=== PATIENT | female | born 1935 | race Caucasian/White ===

== ENCOUNTER 2018-07-02 20:45 | Inpatient (IN) | payer MEDICARE, OTHER ==
[~2018-07-02] VITALS: Ht 157.5 cm; Wt 61.7 kg
[2018-07-02] MEDS ORDERED: AMLO10 PO (20:58)
[2018-07-02 21:22] LABS: BASOPHILS ABSOLUTE AUTO 0.05 K/mm3 (0.00-0.23); BASOPHILS PERCENT AUTO 1 % (0-2); EOSINOPHILS ABSOLUTE AUTO 0.26 K/mm3 (0.00-0.68); EOSINOPHILS PERCENT AUTO 4 % (0-6); Hematocrit 46.5 % (33.0-51.0); Hemoglobin 14.9 g/dL (11.5-16.0); IMMATURE GRAN ABSOLUTE AUTO 0.01 K/mm3 (0.00-0.10); IMMATURE GRAN PERCENT AUTO 0 % (0-1); LYMPHOCYTES ABSOLUTE AUTO 1.29 K/mm3 (0.84-5.20); LYMPHOCYTES PERCENT AUTO 19 % (21-46); MONOCYTES ABSOLUTE AUTO 0.61 K/mm3 (0.16-1.47); MONOCYTES PERCENT AUTO 9 % (4-13); Mean Corpuscular Volume 91 fL (80-100); Mean Platelet Volume 10.1 fL (9.1-12.4); NEUTROPHILS ABSOLUTE AUTO 4.66 K/mm3 (1.96-9.15); NEUTROPHILS PERCENT AUTO 68 % (41-73); Platelet Count 267 K/mm3 (150-400); RDW Coefficient Variation 14.3 % (11.7-14.2); Red Blood Cell Count 5.13 M/mm3 (3.80-5.20); White Blood Cell Count 6.88 K/mm3 (4.00-11.30)
[2018-07-02 21:39] LABS: Alanine Aminotransfer (ALT/SGP 18 U/L (12-78); Albumin, Blood 3.8 g/dL (3.4-5.0); Albumin/Globulin Ratio 0.9 (0.8-1.8); Alk Phos 116 U/L (50-136); Anion Gap 11 mmol/L (6-16); Aspartate Aminotrans (AST/SGOT 21 U/L (12-37); Bilirubin, Total 0.4 mg/dL (0.1-1.0); Blood Urea Nitrogen 23 mg/dL (8-24); Bun/Creatinine Ratio 20.7 (12.0-20.0); CO2, Blood 25 mmol/L (21-32); Calcium, Blood 9.8 mg/dL (8.5-10.1); Chloride, Blood 108 mmol/L (98-108); Creatinine, Blood 1.11 mg/dL (0.40-1.00); Ethanol (Alcohol), Blood, Med <3 mg/dL; Globulin, Blood 4.3 g/dL (2.2-4.0); Glomerular Filtration Rate 50 (60-); Glucose, Blood 81 mg/dL (70-99); Magnesium, Blood 1.8 mg/dL (1.6-2.4); Potassium, Blood 3.8 mmol/L (3.5-5.5); Sodium, Blood 144 mmol/L (136-145); Total Protein, Blood 8.1 g/dL (6.4-8.2); Troponin I <0.015 ng/mL (0.000-0.040)
[2018-07-02 23:35] LABS: Source, Urine Voided
[2018-07-02 23:41] LABS: Bilirubin, Urine Neg (Neg); Blood, Urine Neg (Neg); Glucose Qualitative, Urine Neg (Neg); Ketones, Urine 1+ (Neg); Leukocyte Esterase, Urine Neg (Neg); Nitrite, Urine Neg (Neg); Protein, Urine 2+ (Neg); Specific Gravity, Urine 1.025 (1.003-1.022); Urobilinogen, Urine NORM (Normal)
[2018-07-02 23:42] LABS: Appearance, Urine Clear (Clear); Color, Urine Yellow (P-Yellow)
[2018-07-02 23:59] LABS: Amorphous Light (0-Heavy); Bacteria Few /hpf; Red Blood Cells, Urine Not Seen /hpf (0-2); Squamous Epithelial Cells Few /hpf (Few); White Blood Cells, Urine Not Seen /hpf (0-5)
--- NOTE | 2018-07-03 04:33 | NUR ---
07/03/18224 PT PULLED OUT IV AND ASKING FOR TISSUES. WHEN ASKED WHY SHE PULLED IT OUT SHE SAID,"I JUST DID IT." RN ATTEMPTING NEW IV SITE.
--- NOTE | 2018-07-03 07:30 | NUR ---
PT ARGUMENTATIVE. AMGRY, SWEARING, DEMANDS RESTRAINTS OFF. CONFUSED. DOES KNOW NAME. FAMILY. DISORIENTED. 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 H/R REG, STEVE. PER TELE: S STEVE AT 59. LUNGS CLEAR, RESP EASY, UNLABORED. ON R/A. BT X4 LAST BM UNKNOWN BY PT. VOIDS INCONT. PLACED IN ATTENDS AT THIS TIME. PT CONTINUES TO YELL AND IS NOT COOP. CONFUSED. BED IN LOW POSITION, CALL LITE IN REACH. BED ALARM ON FOR SAFETY. IS ALSO IN POSY VEST AND WRIST RESTRAINTS.
--- NOTE | 2018-07-03 07:45 | NUR ---
ATIVAN GIVEN FOR ANXIETY. PRIOR MRI. PT BEGINNING TO CALM DOWN. UNABLE TO WALK TO GET TO CART FOR MRI. WE USED SLIDER SHEET WITH SUCCESS.
--- NOTE | 2018-07-03 07:59 | NUR ---
07/03/18 0630 PT HAD PULLED OUT IV EARLIER AND TOOK 4 RN'S TO GET NEW SITE STARTED. PT BECAME MORE AGITATED THROUGHOUT SHIFT AND ASKING SAME QUESTIONS OVER AND OVER. RN REOIENTED HER TO SURROUNDINGS BUT WOULD FORGET WHERE SHE WAS AND WHY SHE IS HERE. REFUSED TO TURN AND DECLINED TO USE THE BEDPAN THIS SHIFT. RN PAGED HOSPITALIST TO INFORM OF NEED FOR RESTRAINTS SHE WAS TRYING TO GET OUT OF BED AND WAS REMOVING HEART MONITOR. INFORMED MD OF HIGH BLOOD PRESSURE AND HE STATED BP OKAY UNLESS GREATER THAN 220 SYSTOLIC. RN ATTEMPTED TO GET ANTI-ANXIETY MED BUT ONLY MRI ATIVAN ORDERED FOR NOW. SPOKE WITH SON,KING AND UPDATED HIM ON PT AND HER BEHAVIOR REQUIRING RESTRAINTS.
--- NOTE | 2018-07-03 11:00 | NUR ---
SON, KING COTTON. WILL COME TO SEE PT IN COUPLE HOUDRS. STATES HER COGNITION HAS BEEN FADING FOR AT LEAST A YEAR. WAS 1-2 ASST PLUS SHE USES FURNITURE TO MOTATE AROUMD ROOM.
--- NOTE | 2018-07-03 14:10 | NUR ---
SON IN ROOM. UPDATED ON SITUATION. VISITING WITH PT.
--- NOTE | 2018-07-03 14:45 | NUR ---
SON IN ROOM WITH HER S/O. ABLE TO STATES IS HER SON, NOT ABLE TO SAY NAME OR HIS B/DATE, ONLY IS 12 Y/O. COULD NOT GIVE ME S/O NAME. OR DATE. HAS REMAINED PLEASANT SLEEPY SINCE ATIVAN. DOES AWAKEN EASILY.
--- NOTE | 2018-07-03 17:00 | NUR ---
PT BECAME VERY ANGRY. DEMANDING TO LEAVE. TOLD HER NOT ABLE TO GO. PT HAD WORKED WITH HER EARLIER TODAY AND BARELY GOT TO STAND AND TAKE ONE STEP. SHE DETERMINED. SO I AGREED TO TAKE VIKRAM VEST RELEASE FROM CHAIR AND WALK WITH HER TO SEE. SHE TOOK ZYPREXA AND WE COMMENCED TO WALK TO DOOR. PT S/O AND SON WALKED WITH US. THEN DOWN MANNING CLEAR TO IRU MANNING. SINCE NO DR AT END OF MANNING. SHE RELUCTANTLY AGREED TO WALK TO HER ROOM AND WAIT. AIDE FOLLOWED FULL DISTANCE WITH WHEEL CHAIR. WALKED WITH FWW ALL WAY BACK TO ROOM. TOTAL WALK APPROX 500 FEET. WALK TOOK APPROX 1/[address] TO ADVISE. PT GOT BACK TO BED. TIRED. REBECCA PLACED AGAIN. NO WRIST RESTRAINTS. PT RELAXING, AWAKE. FAMILY AT BEDSIDE. ALL TALKING. CALMLY. 1729 FAMILY LEAVING. PT IN BED, POSY PLACED. BED ALARM ON FOR SAFETY. CALL LITE IN REACH
--- NOTE | 2018-07-03 18:02 | NUR ---
PT HAD ANGER THIS AM. MEDICATED WITH ATIVAN TO GET THROUGH MRI. DID CALM DOWN WELL. DID WELL WITH MRI. PENDING XRAY ON LEG AND HIP. PT RESTED MUCH OF AM THRU AFTERNOON. DID BECOME ANGRY DEMANDING TO GO HOME ABOUT 1700. AGREED TO TAKE ZYPREXA IF UNTIED FROM CHAIR. AGREED, AND SHE TOOK MED. SHE THEN DEMANDED TO GO HOME. SEE PRIOR NOTE. AFTER LONG WALK, DID GET BACK TO BED. EATING SITTING UP IN BED AT THIS TIME. POSY VEST APPLIED. BED IN LOW POSITION, CALL LITE IN REACH, BED ALARM ON FOR SAFETY.
--- NOTE | 2018-07-03 20:07 | NUR ---
PT TAKEN FOR XR OF L HIP/LEG. PT TO TRANSFER TO SCU ROOM 352 WHEN SHE COMES BACK UP FROM XR. REPORT GIVEN TO FRANSISCO HARRIS ASSUMING CARE.
--- NOTE | 2018-07-04 07:21 | NUR ---
calling out and fighting with restraints, iv infusing, room air, walking rounds completed with day shift, call light in reach
[2018-07-04 09:05] LABS: Anion Gap 8 mmol/L (6-16); Blood Urea Nitrogen 16 mg/dL (8-24); Bun/Creatinine Ratio 21.9 (12.0-20.0); CO2, Blood 24 mmol/L (21-32); Calcium, Blood 9.2 mg/dL (8.5-10.1); Chloride, Blood 109 mmol/L (98-108); Creatinine, Blood 0.73 mg/dL (0.40-1.00); Glomerular Filtration Rate >60 (60-); Glucose, Blood 80 mg/dL (70-99); Potassium, Blood 3.5 mmol/L (3.5-5.5); Sodium, Blood 141 mmol/L (136-145)
--- NOTE | 2018-07-04 16:09 | NUR ---
SUMMARY PT IS CONFUSED/DISORIENTED T/O DAY. SHE HAS BEEN IN REBECCA VEST RESTRAINT D/T HIGH FALL RISK, UNPREDICTABLE BEHAVIOR, NONREDIRECTABLE @ X'S. GAIT IS UNSTEADY, 1 ASSIST TO CHAIR TODAY, PARTICIPATED WITH PT/OT. SHE WAS GENERALLY CALM THIS AM & INTO THE AFTERNOON THEN BECAME INCREASINGLY AGITATED/ANXIOUS, CONFUSED, YELLING OUT, ATTEMPTING TO DISROBE. ATTEMPTS TO REORIENT/REASSURE UNSUCCESSFUL, TRIED HAVING HER TALK ON PHONE WITH HOWEVER UNSUCCESSFUL. GAVE ONE TIME ATIVAN 1MG FOR RELIEF, ASSISTED HER BACK TO BED SHE HAS BEEN RESTING/SLEEPING. BP HAS BEEN ELEVATED, LAST SBP 170'S, PARAMETERS CLARIFIED WITH DR WING, PRN HYDRALAZINE GIVEN. SOCSERV WORKING ON PLACEMENT.
--- NOTE | 2018-07-05 04:37 | NUR ---
SHIFT SUMMARY PT SLEEPY AT START OF SHIFT. WHEN PT WOKE SHE WAS VERY CONFUSED AND DID NOT UNDERSTAND WHY SHE WAS IN THE HOSPITAL AND WHY HER WAS NOT WITH HER. PT ATTEMPTING TO GET OOB W/O ASSISTANCE. REBECCA VEST REMAINS IN PLACE. PT REQUESTED TO GET UP TO GO TO THE RESTROOM. ATTEMPTED TO GET PT UP TO USE THE BSC. USING TWO PEOPLE AND A GAIT BELT WE WERE UNABLE TO GET PT UP. PT NOT BEARING ANY WEIGHT ON HER LEGS AND COMPLAINED OF PAIN IN L LEG. MEDICATED W/ TYLENOL AND ZYPREXA X 1. OTHERWISE NO ACUTE CHANGES. BLOOD PRESSURE ELEVATED AT START OF SHIFT, IMPROVING AFTER NEW DOSE OF LOSARTAN. WILL CONTINUE TO MONITOR AND REPORT TO DAY RN.
[2018-07-05 05:30] LABS: Anion Gap 8 mmol/L (6-16); Blood Urea Nitrogen 16 mg/dL (8-24); Bun/Creatinine Ratio 18.1 (12.0-20.0); CO2, Blood 27 mmol/L (21-32); Calcium, Blood 9.5 mg/dL (8.5-10.1); Chloride, Blood 109 mmol/L (98-108); Creatinine, Blood 0.89 mg/dL (0.40-1.00); Glomerular Filtration Rate >60 (60-); Glucose, Blood 95 mg/dL (70-99); Potassium, Blood 3.3 mmol/L (3.5-5.5); Sodium, Blood 144 mmol/L (136-145)
--- NOTE | 2018-07-05 08:00 | NUR ---
PTPLEASANTLY CONFUSED. SOME AGITATION AND REFUSAL TO ANSWER QUESTIONS. AT TIME. ABLE TO TELL SELF AND FAMILY. CALLS FOR CLARENCE AND KING. H/R REG, NO MURMER NOTED. NO TELE. LUNGS CLEAR, RESP EASY, UNLABORED. ON R.A. BT X4 LAST BM UNKNONWN TO PT. VOIDS ATTENDS AND 1 ASST WITH BSC. BED IN LOW POSITION, CALL LITE IN REACH, BED ALARM ON FOR SAFETY. POSY VEST ON FOR SAFETY. HIGH FALL RISK CANNOT FOLLOW DIRECTION, REFUSES TO FOLLOW INSTRUCTION WEAKNESS.
--- NOTE | 2018-07-05 16:46 | NUR ---
PT YELLING FOR VASQUEZ. HE NOT HERE. MOVED TO WINDOW TO LOOK OUT. NOT HELPING. OFFERED WATER. SIPPED. MEDICATED FOR ANXIETY.
--- NOTE | 2018-07-05 18:53 | NUR ---
PT CALMER SINCE IS BACK TO CHAIR TO EAT. ZYPREXA HAS HELPED. STILL CALLS OCCATIONALLY. IN LOUNGE CHAIR EATING AT PRESENT. VEST REMAINS IN PLACE. BED IN LOW POSITION, ACLL LITE IN REACH, CALLS APPROP
--- NOTE | 2018-07-05 21:28 | NUR ---
PATIENT ANGRY AND AGITATED AFTER BEING CALM WITH MEDICATION ADMINISTRATION. REBECCA VEST IN PLACE. WILL CONTINUE TO MONITOR.
--- NOTE | 2018-07-05 23:14 | NUR ---
HOPSITALIST DR VAUGHN RENEWED NON VIOLENT REBECCA VEST.
--- NOTE | 2018-07-06 04:23 | NUR ---
SHIFT SUMMARY PATIENT HAD NO ACUTE CHANGES OBSERVED DURING THE SHIFT. COOPERATIVE WITH MEDICATION ADMINISTRATION AND AGITATED WITH TRANSFER FROM CHAIR TO BED. REBECCA VEST ON AND RENEWED PER HOPSITALIST DR VAUGHN. AXOX 2. PIV REMAINS INTACT. DENIES PAIN, SOB, AND N/V. VSS/AFEBRILE. PATIENT ABLE TO SLEEP MOST OF THE SHIFT. CALLS OUT TO A CLARENCE AND ANOTHER WHEN AWAKE. CALL LIGHT IN REACH. BED IN LOWEST POSITION. WILL CONTINUE TO MONITOR UNTIL DAY SHIFT NURSE ASSUMES CARE.
--- NOTE | 2018-07-06 06:00 | NUR ---
BP 164/81; APRESOLINE 10 MG IV GIVEN PER EMAR. WILL REASSESS.
--- NOTE | 2018-07-06 06:26 | NUR ---
BP REASSESSED 143/83. CALL LIGHT IN REACH. WILL CONTINUE TO MONITOR
--- NOTE | 2018-07-06 17:05 | NUR ---
PATIENT HAD SON AT BEDSIDE THIS AFTERNOON. DISCUSSED OPTIONS FOR DISCHARGE WITH PATIENT'S SON. JOESPH FROM HOSPICE DISCUSSED OPTIONS WITH RN . JOESPH TOOK THE SON'S NUMBER AND IS PLANNING TO CALL HIM. JOESPH STATES HE WILL COME ASSESS PATIENT TOMORROW. PATIENT HESITANT TO TRANSFER OR AMBULATE AT THIS TIME. PATIENT UNABLE TO TELL RN WHERE SHE IS. TAB ALARM IN PLACE. WILL CONTINUE TO MONITOR
--- NOTE | 2018-07-06 21:00 | NUR ---
PATIENT TRANSFER CHAIR TO BED AND COOPERATIVE. CALM WITH MEDICATION ADMINISTRATION AND ASSESSMENT. REPORTS WANTS TO WATCH TV. REBECCA VEST ON. CALL LIGHT IN REACH. WILL CONTINUE TO MONITOR.
--- NOTE | 2018-07-07 05:05 | NUR ---
SHIFT SUMMARY PATIENT HAD NO ACUTE CHANGES. AXOX 3 W/CONFUSION. REBECCA VEST IN PLACE. HEAVY TWO PERSON TRANSFER FROM CHAIR TO BED. REPORTS WEAK LEGS. DENIES PAIN, SOB, AND N/V. NO AGITATION THIS SHIFT AND MINIMAL VERBAL CALLING OUT. VSS/AFEBRILE. CALL LIGHT IN REACH. BED IN LOWEST POSITION. WILL CONTINUE TO MONITOR UNITL DAY SHIFT NURSE [facility].
--- NOTE | 2018-07-07 06:38 | NUR ---
BP 166/93; IV APRESOLINE 10 MG GIVEN PER EMAR BP 122/59 AFTER REASSESSMENT. CALL LIGHT IN REACH. WILL CONTINUE TO MONITOR.
--- NOTE | 2018-07-07 15:04 | NUR ---
SPOKE WITH DAUGHTER OF PATIENT. SHE IS CONCERNED THAT THE PATIENT'S KNEE HAS NOT HAD AN MRI. XRAY SHOW NO ISSUE WITH BONE TISSUE BUT PATIENT COMPLAINS OF LEFT KNEE/HIP PAIN. ACCORDING TO THE PATIENT'S DAUGHTER THIS PAIN HAS BEEN CHRONIC FOR THE LAST 6 YEARS. FAMILY ALSO WISHES TO DISCUSS DISCHARGE PLANNING THE DAUGHTER STATES THAT SHE IS PREPARED TO HAVE 24 HOUR CAREGIVERS IN THE HOME IF THE PATIENT IS ABLE TO GO HOME. PATIENT WAS COOPERATIVE WITH PHYISCAL THERAPY AND COOPERATIVE THIS MORNING. THIS AFTERNOON SHE IS MORE AGITATED. SHE APPEARS TO TALK TO PEOPLE WHO ARE NOT IN HER ROOM. FREQUENTLY CALLS OUT FOR MARTÍN AND IS FORGETFUL THAT SHE IS IN THE HOSPITAL. SHE REQUIRES A 3 PERSON ASSIST FOR TOILETING WHEN SHE IS UNCOOPERATIVE. SHE WILL DROP HER WEIGHT AND REFUSE TO MOVE WHEN BANANA HANDLER OFFERS TO CLEAN HER UP. SHE STATES SHE WANTS TO GO HOME TONIGHT AND OFFERED STAFF 100 DOLLARS TO "GET HER OUT OF HERE". STAFF INFORMED PATIENT THEY ARE UNABLE TO ASSIST HER IN LEAVING UNTIL SHE HAS A DR DISCHARGE ORDER.
--- NOTE | 2018-07-07 17:10 | NUR ---
SPOKE WITH ABOUT PATIENT'S LEFT KNEE AND HIP PAIN. DR. WING STATES THE PATIENT HAS A LOT OF ARTHRITIS IN THESE AREAS THAT IS CAUSING HER PAIN. SHE DOES NOT THINK A FOLLOW UP MRI WOULD BE NECESSARY. SPOKE WITH FAMILY PRIOR TO DR. WING, THEIR CONCERNS CONTINUE TO BE DISCHARGE PLANNING AND THE LEG PAIN. PATIENT'S DAUGHTER STATES THAT THEY ARE "CONSIDERING" A TRACK MAINTAINER CAREGIVER FOR THE PATIENT. THEY CURRENTLY DO NOT HAVE ANY IN PLACE. PATIENT NOT COOPERATIVE WITH TOILETING THIS AFTERNOON. BEGGING STAFF TO LET HER GO HOME. CURRENTLY STILL IN [facility] FOR HER SAFETY.
--- NOTE | 2018-07-07 19:43 | NUR ---
PATIENT CALLING OUT FOR VASQUEZ. WILL INCREASE IN VOLUME YELLING. CALL LIGHT IN REACH. REBECCA VEST IN PLACE. WILL CONTINUE TO MONITOR.
--- NOTE | 2018-07-07 21:41 | NUR ---
HEAVY TWO PERSON STAND PIVOT FROM CHAIR TO BED. LET PATIENT REPORT WHEN SHE IS READY FIRST. REBECCA VEST IN PLACE. NOW WATCHING TV. CALL LIGHT IN REACH. WILL CONTINUE TO MONITOR.
--- NOTE | 2018-07-07 22:50 | NUR ---
PATIENT HAVING AUDITORY HALLUCINATIONS. HAVING A CONVERSATION WITH ZARA. CALL LIGHT IN REACH. WILL CONTINUE TO MONITOR.
--- NOTE | 2018-07-08 04:36 | NUR ---
SHIFT SUMMARY PATIENT HAD NO ACUTE CHANGES OBSERVED DURING THE SHIFT. CALLING OUT T/O THE SHIFT FOR ZARA. AUDITORY HALLUCINATION. HVY TWO PERSON ASSIST W/WEAK LEGS TRANSFER FROM CHAIR TO BED. MINIMAL AGITATION WHEN LISTENING TO PATIENT NEEDS AND DIRECTION ON TRANSFERS AND POSITIONING. VSS/AFEBRILE. DENIES PAIN,SOB, AND N/V. REBECCA VEST. CALL LIGHT IN REACH. BED IN LOWEST POSITION. WILL CONTINUE TO MONITOR UNTIL DAY SHIFT NURSE ASSUMES CARE.
--- NOTE | 2018-07-08 05:15 | NUR ---
PATIENT HAVING AUDITORY HALLUCINATIONS. REORIENTS AND GOES BACK SANDRA HALLUCINATION. CALL LIGHT IN REACH.
--- NOTE | 2018-07-08 13:23 | NUR ---
Pt stated she was not hungry and would not eat her breakfast. Pt was friendly and open to visit. Pt able to converse in finesse, but at times said non-sensical sentences. Pt reports she was born in [place] and has traveled "through many of the states." Pt verbalized gratitude for the visit. I will remain available.
--- NOTE | 2018-07-08 16:07 | NUR ---
SHE WAS AGITATED THIS MORNING SQUIRMING AROUND IN BED AND PULLING ON HER REBECCA VEST STRAPS. SHE WANTED SCISSORS. ORIENTED TO HERSELF. STRAIGHTEDNED UP IN BED A FEW TIMES IN A FEW HRS. SHE NAPPED MID MORNING AFTER I GAVE HER ZYPREXA WITH HER AM MEDS. I ALSO GAVE HER TYLENOL FOR A H/A AND L LEG PAIN. IT WAS REPORTED THAT SHE GOT UP TO THE [facility] X2 DURING THE NIGHT WITH 1 ASSIST. FOR US SHE STOPPED ABRUPTLY WHILE WORKING WITH OT, WAS PUT BACK ONTO THE BED SO SHE WOULDN'T FALL, THEN REFUSED TO MOVE AN INCH FOR THE NEXT HOUR. THEN WITH MUCH ENCOURAGEMENT, WE CHANGED AND MOVED HER.SHE SAID HER PAIN IN HER L THIGH EARLIER WAS EXCRUCIATING. HER SON DHIRAJ CALLED AND WANTED TO CALL HIM. I GAVE HER HIS NUMBER. JUST RECENTLY I HEARD FROM THE CA SCREEN ROOM OPERATOR THIS AFTERNOON THAT HER SON KING WILL PICK HER UP AND TAKE HER HOME AT 10 AM TOMORROW.
--- NOTE | 2018-07-08 23:46 | NUR ---
FEMUR FX NOTIFIED DR COREA REGARDING CT SCAN RESULTS SHOWING FX OF L FEMUR. ASKED IF HE WOULD LIKE ORDER PLACED FOR ORTHO CONSULT. DR COREA STATED HE WOULD REVIEW PT'S CHART BUT NO ORDERS GIVEN AT THIS TIME. WILL PASS ON TO DAY SHIFT RN IN AM.
--- NOTE | 2018-07-09 05:00 | NUR ---
TICKET BROKER SUMMARY PT AAOX1 AND VERY CONFUSED. FOLLOWS DIRECTION AT TIMES BUT CAN BE VERY RESISTANT TO CARE, ESPECIALLY ATTENDS CHANGES. PT HAD LARGE BM THIS SHIFT. PT RETURNED FROM CT SCAN AT START OF SHIFT. CT RESULTS SHOWED FX OF L LEG. SPOKE WITH HOSPITALIST REGARDING CT REPORT, SEE PREVIOUS NOTE FOR DETAILS. PT HAD NO IV UPON INITIAL ASSESSMENT. PT BECAME A BIT AGITATED AND REFUSED FOR NEW IV TO BE PLACED. ONLY IV MED ON EMAR IS PRN HYDRALAZINE. SPOKE WITH DR COREA REGARDING NO IV, RECIEVED ORDER TO KEEP IV OUT AND TO SWITCH HYDRALAZINE ORDER TO PO. VSS, WILL CONTINUE TO MONITOR.
--- NOTE | 2018-07-09 07:54 | NUR ---
I NOTIFIED ABOUT THE CT RESULTS. SHE GAVE ME AN ORDER FOR ORTHO CONSULT. I CALLED IT TO DR.SANDERS EARLY. SERVICE AT 0730. SHE SAYS YES TO PAIN. HER LEFT LEG IS BENT AT THE KNEE AND OUTWARDLY ROTATED. SHE REMAINS VERY CONFUSED, WITH HALLUCINATIONS. SHE IS COOPERATIVE. REBECCA VEST ON. BED ALARM ON. WILL KEEP ON BEDREST, AWAITING INSTRUCTIONS FROM ORTHO.
[2018-07-09 08:56] LABS: BASOPHILS ABSOLUTE AUTO 0.03 K/mm3 (0.00-0.23); BASOPHILS PERCENT AUTO 0 % (0-2); EOSINOPHILS ABSOLUTE AUTO 0.12 K/mm3 (0.00-0.68); EOSINOPHILS PERCENT AUTO 1 % (0-6); Hematocrit 41.8 % (33.0-51.0); Hemoglobin 13.4 g/dL (11.5-16.0); IMMATURE GRAN ABSOLUTE AUTO 0.06 K/mm3 (0.00-0.10); IMMATURE GRAN PERCENT AUTO 1 % (0-1); LYMPHOCYTES ABSOLUTE AUTO 0.63 K/mm3 (0.84-5.20); LYMPHOCYTES PERCENT AUTO 6 % (21-46); MONOCYTES ABSOLUTE AUTO 0.74 K/mm3 (0.16-1.47); MONOCYTES PERCENT AUTO 7 % (4-13); Mean Corpuscular HGB 29.4 pg (26.0-34.0); Mean Corpuscular HGB Conc 32.1 g/dL (31.5-36.5); Mean Corpuscular Volume 92 fL (80-100); Mean Platelet Volume 10.6 fL (9.1-12.4); NEUTROPHILS ABSOLUTE AUTO 8.45 K/mm3 (1.96-9.15); NEUTROPHILS PERCENT AUTO 84 % (41-73); Platelet Count 305 K/mm3 (150-400); RDW Coefficient Variation 14.3 % (11.7-14.2); RDW Standard Deviation 48.5 fL (35.1-46.3); Red Blood Cell Count 4.56 M/mm3 (3.80-5.20); White Blood Cell Count 10.03 K/mm3 (4.00-11.30)
[2018-07-09 09:12] LABS: Albumin, Blood 3.3 g/dL (3.4-5.0); Albumin/Globulin Ratio 0.7 (0.8-1.8); Bilirubin, Total 0.7 mg/dL (0.1-1.0); Bun/Creatinine Ratio 39.6 (12.0-20.0); Calcium, Blood 10.2 mg/dL (8.5-10.1); Creatinine, Blood 1.01 mg/dL (0.40-1.00); Globulin, Blood 4.7 g/dL (2.2-4.0); Potassium, Blood 3.4 mmol/L (3.5-5.5)
[2018-07-09 11:47] LABS: Source, Urine Catheter
[2018-07-09 12:08] LABS: Blood, Urine Neg (Neg); Glucose Qualitative, Urine Neg (Neg); Ketones, Urine Neg (Neg); Leukocyte Esterase, Urine Neg (Neg); Nitrite, Urine Neg (Neg); Protein, Urine 2+ (Neg); Urobilinogen, Urine 1+ (Normal)
[2018-07-09 12:12] LABS: International Normalized Ratio 1.04; Prothrombin Time Results 10.7 Sec (9.7-11.5)
[2018-07-09 12:18] LABS: Bilirubin, Urine 1+ (Neg)
[2018-07-09 12:19] LABS: Appearance, Urine Clear (Clear); Color, Urine Yellow (P-Yellow)
[2018-07-09 12:21] LABS: Bacteria Rare /hpf; Red Blood Cells, Urine 0-2 /hpf (0-2); Squamous Epithelial Cells Few /hpf (Few); White Blood Cells, Urine 0-2 /hpf (0-5)
--- NOTE | 2018-07-09 13:44 | NUR ---
PT WITH RN WAITING TO GO BACK TO OR. PT IS VERY PLEASANT AT THIS TIME. PT CAN STATE HER NAME AND BUT DOES NOT KNOW WHERE SHE IS. LT LEG HAS BEEN CLEANED WITH CHLORAHEXIDINE. RED SOCKS PLACED ON HER RT FOOT. SON IS AWARE AND GAVE CONSENT FOR PT TO HAVE PROCEDURE. PT HAS BILATERAL WRIST RESTRAINTS IN PLACE AND REBECCA FROM FLOOR. ENVIRONMENTAL PROJECT MANAGER REMOVED WRIST RESTRAINTS AT THIS TIME. PT IS DOING WELL. DENIES PAIN WHEN ASKED. MD WILL COME INITIAL LEFT HIP FOR SX. PT CALM AND EASY TO REDIRECT. WILL CONTINUE TO MONITOR.
--- NOTE | 2018-07-09 13:59 | NUR ---
SHE WENT TO SURGERY BY BED AT 1330. BILATERAL WRIST RESTRAINTS IN PLACE. SHE RECEIVED FENTANYL X2 THIS MORNING AFTER IV REPLACED. SOUZA WAS INSERTED FOR RETENTION AND IS IN PLACE FOR SURGERY. L LEG REMAINED BENT AT THE KNEE AND ROTATED OUTWARD. L FOOT WARM WITH PALPABLE PULSE. SHE IS VERY CONFUSED BUT SAYS NO NUMBNESS. PHONE CONSENT OBTAINED FROM HER SON KING WITH . COPY OF CONSENT FAXED TO KING PER HIS REQUEST.
--- NOTE | 2018-07-09 16:09 | NUR ---
PT IS LOOKING AROUND THE ROOM. MAKING COMMENTS TO SELF. WHEN RN ASKS IF PT IS HAVING PAIN PT DOES NOT ANSWER QUESTIONS. PT DOES NOT APPEAR TO BE IN PAIN. VSS. LT HIP HAS THREE AQUACEL DRSG CDI. PAULETTE/PAS AND RED SOCKS ON. PT HAD SOME THICK MUCUS IN MOUTH, RN CLEANED OUT MOUTH AND GAVE PT SWAB. APPLIED MOUTH MOISTURIZER. PT STATES THANK YOU. XRAY IS AT BEDSIDE. PT IS DOING WELL.
--- NOTE | 2018-07-09 16:51 | NUR ---
SHE HAS RETURNED FROM OR AND PACU. CONFUSION UNCHANGED FROM HER PREOP STATE. SHE IS PLEASANT RIGHT NOW. HER LEG IS STRAIGHT, NOT BENT OR ROTATED. [address]ESS[address] ARE IN PLACE. THE DISTAL AQUCEL HAS A BLOOD SPOT ON IT THE SIZE OF A QUARTER. PAS PUMP RESUMED. KNEE HIGH TEDS ARE ON UNDERNEATH. BILATERAL WRIST RESTRAINTS ON. LR IV INFUSING. BP HIGH. RA SAT 90% ON RA. WILL MONITOR PER PROTOCOL. SOUZA BAG HAS A SMALL AMT OF CONCENTRATED GABBY URINE IN IT. WE DID NOT EMPTY HER SOUZA BAG BEFORE OR PICKED HER UP. WE DO NOT HAVE AN ACCURATE U.O. FOR THIS SHIFT. SHE IS HAVING AN ENTIRE CONVERSATION WITH SOMEONE WHO IS NOT HERE. SHE APPEARS COMFORTABLE. SHE IS NO LONGER FRANTIC ABOUT US TOUCHING HER LEG.
--- NOTE | 2018-07-09 18:20 | NUR ---
SHE HAS HER DINNER TRAY IN FRONT OF HER AND 1 WRIST RESTRAINT OFF SO SHE CAN EAT. THE COMPOSITION FLOOR SETTER FED HER A JELLO WHEN SHE GOT BACK FROM SURGERY. SHE LIKED THAT. IT IS HARD TO GET ACCURATE VS ON HER BECAUSE SHE MOVES SO MUCH AND TIGHTENS DURING THE BP CHECK AND HER HANDS ARE COLD FOR A BIOX. WE PUT A WARM BLANKET ON HER HANDS BEFORE DINNERTIME. WILL CONTINUE TO MONITOR. I PUT 2L NC ON HER BECAUSE HER BIOX SHOWS 90%, BORDERLINE, THOUGH I THINK IT READS INACCURATELY LOW. 3 L LEG DRESSINGS ALONG THE LATERAL SURFACE ARE INTACT. NO CHANGE FROM PREVIOUS NOTE. SHE IS COMFORTABLE. NO NEED FOR PAIN MEDICINE YET. HER FAMILY HAS CALLED IN TO CHECK ON HER.
--- NOTE | 2018-07-10 00:57 | NUR ---
PT FOUND TO HAVE TEMPORAL TEMP OF 102.7 PER ORTHOPEDIC TECHNICIAN, ALL BLANKETS REMOVED FROM PT. TEMP RECHECKED 10 MINUTES LATER AND TEMP DOWN TO 99.8. TYLENOL GIVEN CRUSHED IN PUDDING, BUT PT WOULD ONLY TAKE HALF. WILL CONTINUE TO MONITOR.
--- NOTE | 2018-07-10 02:33 | NUR ---
PT TEMP DOWN TO 99.1. PT TAWNYA OUT HELP I'M BEING SHOCKED BY ELECTRICITY, REFERRING TO HER SCD'S. UNABLE TO REDIRECT PT. WILL CONTINUE TO MONITOR.
--- NOTE | 2018-07-10 05:06 | NUR ---
SHIFT SUMMARY PT SLEPT OFF AND ON DURING THE NIGHT, HOLLERING OUT OFF AND ON. DRESSINGS ON LEFT LEG WITH DRAINAGE NOTED, NO SEEPING NOTED. IVF'S INFUSING PER PUMP WITHOUT DIFFICULTY. PT ALSO PULLING AT CATHETER TUBING, REDIRECTED PT TO NOT PULL AT THE CATHETER. SOFT WRIST RESTRAINTS ON BILAT, SKIN AND CIRCULATION CHECKS GOOD. PT LYING TO RIGHT SIDE AND REFUSES TO BE POSITIONED IN ANY OTHER DIRECTION, LAYS TO RIGHT SIDE AFTER BEING SET UP STRAIGHT IN THE BED. NO OTHER CHANGES NOTED, WILL CONTINUE TO MONITOR.
[2018-07-10 11:54] LABS: Albumin, Blood 2.5 g/dL (3.4-5.0); Albumin/Globulin Ratio 0.6 (0.8-1.8); Bilirubin, Total 0.6 mg/dL (0.1-1.0); Bun/Creatinine Ratio 34.8 (12.0-20.0); Calcium, Blood 9.2 mg/dL (8.5-10.1); Creatinine, Blood 0.95 mg/dL (0.40-1.00); Globulin, Blood 3.9 g/dL (2.2-4.0); Potassium, Blood 3.2 mmol/L (3.5-5.5); Total Protein, Blood 6.4 g/dL (6.4-8.2)
--- NOTE | 2018-07-10 13:27 | NUR ---
TISHA IGLESIAS IN TO JOAQUIN BAHENA
[2018-07-10 13:40] LABS: BASOPHILS ABSOLUTE AUTO 0.03 K/mm3 (0.00-0.23); BASOPHILS PERCENT AUTO 0 % (0-2); EOSINOPHILS ABSOLUTE AUTO 0.35 K/mm3 (0.00-0.68); EOSINOPHILS PERCENT AUTO 4 % (0-6); Hematocrit 34.5 % (33.0-51.0); Hemoglobin 10.9 g/dL (11.5-16.0); IMMATURE GRAN ABSOLUTE AUTO 0.05 K/mm3 (0.00-0.10); IMMATURE GRAN PERCENT AUTO 1 % (0-1); LYMPHOCYTES ABSOLUTE AUTO 1.11 K/mm3 (0.84-5.20); LYMPHOCYTES PERCENT AUTO 14 % (21-46); MONOCYTES ABSOLUTE AUTO 0.83 K/mm3 (0.16-1.47); MONOCYTES PERCENT AUTO 10 % (4-13); Mean Corpuscular HGB 29.1 pg (26.0-34.0); Mean Corpuscular HGB Conc 31.6 g/dL (31.5-36.5); Mean Corpuscular Volume 92 fL (80-100); Mean Platelet Volume 11.2 fL (9.1-12.4); NEUTROPHILS ABSOLUTE AUTO 5.64 K/mm3 (1.96-9.15); NEUTROPHILS PERCENT AUTO 70 % (41-73); Platelet Count 292 K/mm3 (150-400); RDW Coefficient Variation 14.5 % (11.7-14.2); RDW Standard Deviation 49.6 fL (35.1-46.3); Red Blood Cell Count 3.74 M/mm3 (3.80-5.20); White Blood Cell Count 8.01 K/mm3 (4.00-11.30)
--- NOTE | 2018-07-10 17:29 | NUR ---
SHIFT SUMMARY- PT A/O TO SELF AND FAMILY ONLY. PT REPORTS PAIN WITH MOVEMENT TO LEFT LEG. IV FENTANYL GIVEN X2 PRIOR TO WORKING WITH PHYSICAL THERAPY AND TRANSFERING BACK INTO BED. LS CLEAR, ON RA. HRR. SOUZA PATENT AND DRAINING APROX 400ML THIS SHIFT. AQUACEL DRESSING X3 TO LEFT LEG, AQUACEL DRESSING BELOW KNEE REPLACED. IVF STARTED, KPHOS GIVEN. PER DR MCCOY POSSIBLE CA FOUND, DR CHAMBERLAIN CALLED AND UPDATED SON, MULTIPLE TESTS ORDERED. TISHA IGLESIAS CAME IN AND JOAQUIN'D PT. PT A 2 PERSON MAX BACK TO BED, PT SCARED AND DID NOT FOLLOW DIRECTION WELL, MAY NEED TO BE A LIFT AT TIMES. PT CONT TO HAVE WRISTS RESTRAINTS IN PLACE DUE TO ATTEMPTING TO PULL AT SOUZA AND DRESSING TO LEFT LEG. NEW IV PLACED TO VEENA. NO OTHER ACUTE CHANGES THIS SHIFT.
[2018-07-11 06:14] LABS: BASOPHILS ABSOLUTE AUTO 0.04 K/mm3 (0.00-0.23); BASOPHILS PERCENT AUTO 1 % (0-2); EOSINOPHILS ABSOLUTE AUTO 0.58 K/mm3 (0.00-0.68); EOSINOPHILS PERCENT AUTO 8 % (0-6); Hematocrit 30.1 % (33.0-51.0); Hemoglobin 9.4 g/dL (11.5-16.0); IMMATURE GRAN ABSOLUTE AUTO 0.03 K/mm3 (0.00-0.10); IMMATURE GRAN PERCENT AUTO 0 % (0-1); LYMPHOCYTES ABSOLUTE AUTO 1.58 K/mm3 (0.84-5.20); LYMPHOCYTES PERCENT AUTO 20 % (21-46); MONOCYTES ABSOLUTE AUTO 0.85 K/mm3 (0.16-1.47); MONOCYTES PERCENT AUTO 11 % (4-13); Mean Corpuscular HGB 29.1 pg (26.0-34.0); Mean Corpuscular HGB Conc 31.2 g/dL (31.5-36.5); Mean Corpuscular Volume 93 fL (80-100); Mean Platelet Volume 10.7 fL (9.1-12.4); NEUTROPHILS ABSOLUTE AUTO 4.68 K/mm3 (1.96-9.15); NEUTROPHILS PERCENT AUTO 60 % (41-73); Platelet Count 235 K/mm3 (150-400); RDW Coefficient Variation 14.4 % (11.7-14.2); RDW Standard Deviation 49.3 fL (35.1-46.3); Red Blood Cell Count 3.23 M/mm3 (3.80-5.20); White Blood Cell Count 7.76 K/mm3 (4.00-11.30)
[2018-07-11 06:36] LABS: Alanine Aminotransfer (ALT/SGP 21 U/L (12-78); Albumin, Blood 2.1 g/dL (3.4-5.0); Albumin/Globulin Ratio 0.6 (0.8-1.8); Alk Phos 82 U/L (50-136); Anion Gap 4 mmol/L (6-16); Aspartate Aminotrans (AST/SGOT 38 U/L (12-37); Bilirubin, Total 0.4 mg/dL (0.1-1.0); Blood Urea Nitrogen 22 mg/dL (8-24); Bun/Creatinine Ratio 27.3 (12.0-20.0); CO2, Blood 30 mmol/L (21-32); Calcium, Blood 8.6 mg/dL (8.5-10.1); Chloride, Blood 111 mmol/L (98-108); Creatinine, Blood 0.81 mg/dL (0.40-1.00); Globulin, Blood 3.6 g/dL (2.2-4.0); Glomerular Filtration Rate >60 (60-); Glucose, Blood 114 mg/dL (70-99); Potassium, Blood 3.7 mmol/L (3.5-5.5); Sodium, Blood 145 mmol/L (136-145); Total Protein, Blood 5.7 g/dL (6.4-8.2)
--- NOTE | 2018-07-11 07:19 | NUR ---
SIFT SUMMARY: PATIENT IS A&O TO SELF, CALLING OUT FOR HER , THINKS SHE IS AT HOME BUT RE-ORIENTS EASILY. VS ARE STABLE, REPORTING PAIN IN LLE WITH T&P. ULTRAM AND TYLENOL ARE EFFECTIVE PAIN CONTROL. SOUZA PUT OUT 400 ML OF YELLOW URINE.
--- NOTE | 2018-07-11 17:12 | NUR ---
SHIFT SUMMARY PATIENT HAS BEEN SITTING IN CHAIR, HAS REFUSED TO RETURN TO BED. SHE IS TALKING NON SENSICAL STATEMENTS. FIDGETING BUT NOT PULLING AT LINES. SHE IS PLEASANTLY CONFUSED. NEW STAT LOCK PLACED ON SOUZA AND PLACED OUT OF EASY ACCESSIBLE REACH TODAY. HAS NOT BEEN IN RESTRAINTS ALL DAY AND TOLERATING THIS WELL.
--- NOTE | 2018-07-11 23:28 | NUR ---
AGGITATION: PATIENT HAS LOST ACCESS AND SUDDENLY BECOME VERY AGGITATED. THROWING A BOTTLE OF POWDER. INSISTING STAFF IS NOT TRUTHFULL TO HER. ZYPREXA IS ATTEMPTED ORALLY BUT PATIENT IS REFUSING AT THIS TIME. SON KING IS CALLED AND PATIENT IS TALKING TO HER SON ON PHONE AT THIS TIME. ZYPREXA WILL BE ATTEMPTED AGAIN AFTER PHONE CALL. ELECTRONIC COILS SUPERVISOR IS AT BEDSIDE.
--- NOTE | 2018-07-12 01:05 | NUR ---
AGGITATION: PATIENT CONTINUED TO REFUSE PO ZYPREXA AND NEW IV START. AGGITATED, HALLUCINATING AUDITORY AND VISUAL AND PARANOID. TALKING WITH SON DID NOT HELP. PATIENT IS NOW PULLING ON SOUZA AND WANTS TO LEAVE THE HOSPITAL. MAINSPRING STRIP GAUGER ZA MCKNIGHT IS NOTIFIED OF ABOVE INFORMATION. ORDER FOR ZYPREXA 5MG IM NOW AND SOFT WRIST RESTRAINTS IS OBTAINED. ZYPREXA IS GIVEN AND WRIST RESTRAINTS ARE APPLIED. JELLO AND PO FLUIDS ARE GIVEN. BED ALRAM IS ON FOR SAFETY. PATIENT IS RESTING QUIETLY IN BED AT THIS TIME. WILL CONTINUE TO MONITOR.
--- NOTE | 2018-07-12 02:22 | NUR ---
AGGITATION: PATIENT HAS GOOD EFFECT FROM ZYPREXA IM, SLEEPING IN BED, WRIST RESTRAINTS AND BED ALARM ARE ON
--- NOTE | 2018-07-12 05:33 | NUR ---
SHIFT SUMMARY: PATIENT IS NOW BACK IN WRIST RESTRAINTS, RESTING QUIETLY IN BED. IDEA MAN DOES NOT OBSERVE A VEIN TO ATTEMPT A NEW IV START. PATIENT ALSO BECOMES AGGITATED WHEN LABS ARE ATTEMPTED. CHARGE NURSE IS MADE AWARE. IV START IS DEFERRED TO DAY SHIFT PROCEEDURE RN FOR ULTRASOUND ATTEMP. PATIENT IS ALSO OBSEREVED TO HAVE PERSISTANT LOW GRADE TEMP. BUT REFUSES ANY PO MEDS AT THIS TIME. ONE DOSE OF TRAMADOL WAS GIVEN EARLIER IN SHIFT FOR LEFT LEG PAIN. GOOD EFFCT WAS OBTAINED. PATIENT ONLY REPORTS PAIN WITH T&P.
--- NOTE | 2018-07-12 09:09 | NUR ---
CATHETAR WAS TAKEN OUT AT 0900.
[2018-07-12 16:07] LABS: A/G RATIO 0.8 (0.7-1.7); ALBUMIN 2.5 g/dL (2.9-4.4); ALPHA-1-GLOBULIN 0.5 g/dL (0.0-0.4); ALPHA-2-GLOBULIN 0.8 g/dL (0.4-1.0); BETA GLOBULIN 0.9 g/dL (0.7-1.3); GAMMA GLOBULIN 0.9 g/dL (0.4-1.8); GLOBULIN, TOTAL 3.1 g/dL (2.2-3.9); IMMUNOGLOBULIN A, QN, SERUM 232 mg/dL (64-422); IMMUNOGLOBULIN G, QN, SERUM 941 mg/dL (700-1600); IMMUNOGLOBULIN M, QN, SERUM 41 mg/dL (26-217); M-SPIKE Not Observed g/dL (Not Observed); PROTEIN, TOTAL, SERUM 5.6 g/dL (6.0-8.5)
[2018-07-12 18:06] LABS: A/G RATIO 0.9 (0.7-1.7); ALBUMIN 2.5 g/dL (2.9-4.4); ALPHA-1-GLOBULIN 0.5 g/dL (0.0-0.4); ALPHA-2-GLOBULIN 0.8 g/dL (0.4-1.0); BETA GLOBULIN 0.8 g/dL (0.7-1.3); GAMMA GLOBULIN 0.9 g/dL (0.4-1.8); GLOBULIN, TOTAL 3.1 g/dL (2.2-3.9); IMMUNOGLOBULIN A, QN, SERUM 239 mg/dL (64-422); IMMUNOGLOBULIN G, QN, SERUM 834 mg/dL (700-1600); IMMUNOGLOBULIN M, QN, SERUM 43 mg/dL (26-217); M-SPIKE Not Observed g/dL (Not Observed); PROTEIN, TOTAL, SERUM 5.6 g/dL (6.0-8.5)
--- NOTE | 2018-07-12 19:02 | NUR ---
shift summary DR WORTHY IN THE ROOM AND INFORMED PATIENT OF CANCER DIAGNOSIS. PATIENT HAD NO REACTION INDICATING THAT SHE UNDERSTOOD THE INFORMATION HE PROVIDED. SHE CONTINUES TO BE CONFUSED. STATING "ILL GO OUT AND PEE IN MY CAR IF I NEED TO". SHE IS PLEASANTLY CONFUSED. SHE HAS HAD NO AGGITATION. SHE WAS TAKEN OUT OF RESTRAINTS. HER SOUZA WAS D/C. SHE HAS NOT URINATED HER BLADDER SCAN SHOWS 260 URINE AT THIS TIME, ORDERS FOR >300. CONTINING TO MONITOR Q6 HOURS. SHE IS 2 PERSON ASSIST UP TO BSC. TOLERATING THIS FAIRLY, MORE FEARFUL THAN PHYSICAL PAIN PER MY ASSESSMENT. BED ALARM IN PLACE. FAMILY CALLED AND ASKED QUESTIONS ABOUT PATIENTS COGNITIVE STATUS. INFORMED FAMILY IT APPEARS AT THIS TIME SHE IS NOT AWARE SHE IS IN THE HOSPITAL, HER REASON FOR ADMIT AND IS UNABLE TO GRASP INFORMATION PROVIDED TO HER. FAMILY WAS RECEPETIVE TO THIS CONVERSATION. STATING "THANK YOU FOR THE INSIGHT."
--- NOTE | 2018-07-12 20:33 | NUR ---
ANXIETY/AGGITATION: PATIENT IS ASSIST TO BSC, UNABLE TO VOID. ASIST OF 2 WITH GAIT BELT STAND AND PIVOT. PATIENT COMPLIANS OF PAIN IN LEFT LEG WHEN BACK IN BED. PATIENT ALSO IS LOOKING FOR HER PURSE AND STARTS TO GET PARANIOD. SON KING IS CALLED AND REPORTS PATIENTS PURSE IS AT HOME. PATIENT CALMS SLIGHTLY BUT CONTINUES TO BE ANXIOUS AND IRRITABLE. PO ZYPREXA IS GIVEN ALONG WITH ALL HS MEDS.
--- NOTE | 2018-07-13 04:30 | NUR ---
SHIFT SUMMARY: PATIENT IS RESTING QUIETLY, GOOD EFFECT FROM ZYPREXA. PATIENT WAS BLADDER SCAN, PER MD ORDER. 398 ML IS RETAINED IN BLADDER, PATIENT IS UNABLE TO VOID ON BED [place] AND IS TO SLEEPY TO TRANSFER TO [facility]. PATIEMT IS STRAIGHT CATHED PER MD ORDER, 525 ML OF GABBY URINE IS DRAINED. PATIENT TOLERATED PROCEEDURE WELL. HYPERTENSION IS OBSERVED AT START OF SHIFT 171/82, SCHEDULE COZAAR WAS GIVEN, RECHECK WAS 158/67. LOW GRADE TEMP. 100.9 WAS TREATED WITH TYLENOL, RECHECK 99.1. PATIENT IS REFUSING AM LABS, WILL RE ATTEMPT WHEN PATIENT WAKES.
--- NOTE | 2018-07-13 05:56 | NUR ---
REFUSAL OF TREATMENT: DR COREA IS MADE AWARE OF REFUSAL OF LABS THIS AM. PATIENT NOW IS REFUSING SYNTHROID, PAULETTE HOSE AND BLADDER SCAN. "I SLEEP AT NIGHT I DON'T WANT ANYTHING. BRING IT A COUPLE OF HOURS". WILL PASS ON TO DAY SHIFT TO RE-APROACH PATIENT FOR SYNTHROID, LABS, PAULETTE HOSE AND BLADDER SCAN.
[2018-07-13 06:13] LABS: BETA-2 MICROGLOBULIN, SERUM 2.8 mg/L (0.6-2.4)
[2018-07-13 09:34] LABS: Hematocrit 28.6 % (33.0-51.0); Hemoglobin 9.4 g/dL (11.5-16.0)
[2018-07-13 09:54] LABS: Anion Gap 7 mmol/L (6-16); Blood Urea Nitrogen 12 mg/dL (8-24); Bun/Creatinine Ratio 16.5 (12.0-20.0); CO2, Blood 28 mmol/L (21-32); Calcium, Blood 8.5 mg/dL (8.5-10.1); Chloride, Blood 108 mmol/L (98-108); Creatinine, Blood 0.73 mg/dL (0.40-1.00); Glomerular Filtration Rate >60 (60-); Glucose, Blood 123 mg/dL (70-99); Potassium, Blood 3.2 mmol/L (3.5-5.5); Sodium, Blood 143 mmol/L (136-145)
--- NOTE | 2018-07-13 16:53 | NUR ---
PT HAS NOT VOIDED SINCE SOUZA CATH REMOVAL. BLADDER SCAN TODAY WAS 673. PT ENCOURAGED TO VOID. PLACED ONN BSC MULTIPLE TIMES. DR CALLED ABOUT POSSIBLE SOUZA CATH REINSERTION. WILL STRAIGHT CATH NEEDED FOR TODAY AND DR WILL REVIEW FURTHER NEED. WILL PASS ON TO ONCOMING NURSE.
--- NOTE | 2018-07-13 19:14 | NUR ---
PT PLEASENTLY CONF. SURGICAL SITES C/D/I. 2 PRSN ASSIST WITH GAIT BELT DUE TO LEFT LEG FX AND REPAIR. PT RETAINS URINE SINCE FLOEY CATH REMOVAL. PT STRAIGHT CATHED X1 TODAY WITH 650MLS OUTPUT. PT ORIENTED TO SELF. EAGER TO GO HOME, PENDING PLACEMENT. CALL LIGHT IN REACH.
--- NOTE | 2018-07-14 04:49 | NUR ---
SHIFT SUMMARY NO APPARENT ACUTE CHANGES NOTED SO FAR THIS SHIFT. PT DID REFUSE TO HAVE LAB DRAWS THIS AM AND STATED THAT SHE WOULD NOT DO THEM UNTIL AFTER THE HOLIDAY. UNABLE TO REDIRECT. MEDS CRUSHED IN APPLESAUCE THIS NIGHT PT WAS REFUSING TO TAKE MEDICATIONS. PT DID VOID THIS SHIFT AND WAS INCONTIENT IN HER BED AND REQUIRED A BED CHANGE. WILL CONTINUE TO MONITOR FOR URINARY RETENTION. PT HAS NOT APPEARED TO SLEEP AT ALL THIS NIGHT. PT IS IN BED AWAKE AT THIS TIME CONTINUOUSLY REMOVING CLOTHES. NO APPARENT SIGNS OF ACUTE DISTRESS. FREQUENT VISUAL CHECKS. BED ALARM FOR SAFETY.
[2018-07-14 10:45] LABS: BASOPHILS ABSOLUTE AUTO 0.05 K/mm3 (0.00-0.23); BASOPHILS PERCENT AUTO 1 % (0-2); EOSINOPHILS ABSOLUTE AUTO 0.38 K/mm3 (0.00-0.68); EOSINOPHILS PERCENT AUTO 6 % (0-6); Hematocrit 31.2 % (33.0-51.0); Hemoglobin 9.9 g/dL (11.5-16.0); IMMATURE GRAN ABSOLUTE AUTO 0.04 K/mm3 (0.00-0.10); IMMATURE GRAN PERCENT AUTO 1 % (0-1); LYMPHOCYTES ABSOLUTE AUTO 0.99 K/mm3 (0.84-5.20); LYMPHOCYTES PERCENT AUTO 14 % (21-46); MONOCYTES ABSOLUTE AUTO 0.67 K/mm3 (0.16-1.47); MONOCYTES PERCENT AUTO 10 % (4-13); Mean Corpuscular HGB 29.6 pg (26.0-34.0); Mean Corpuscular HGB Conc 31.7 g/dL (31.5-36.5); Mean Corpuscular Volume 93 fL (80-100); NEUTROPHILS ABSOLUTE AUTO 4.79 K/mm3 (1.96-9.15); NEUTROPHILS PERCENT AUTO 69 % (41-73); Platelet Count 313 K/mm3 (150-400); RDW Coefficient Variation 13.7 % (11.7-14.2); RDW Standard Deviation 46.4 fL (35.1-46.3); Red Blood Cell Count 3.35 M/mm3 (3.80-5.20); White Blood Cell Count 6.92 K/mm3 (4.00-11.30)
[2018-07-14 10:59] LABS: Anion Gap 6 mmol/L (6-16); Blood Urea Nitrogen 10 mg/dL (8-24); Bun/Creatinine Ratio 13.4 (12.0-20.0); CO2, Blood 30 mmol/L (21-32); Calcium, Blood 8.8 mg/dL (8.5-10.1); Chloride, Blood 108 mmol/L (98-108); Creatinine, Blood 0.75 mg/dL (0.40-1.00); Glomerular Filtration Rate >60 (60-); Glucose, Blood 103 mg/dL (70-99); Potassium, Blood 3.8 mmol/L (3.5-5.5); Sodium, Blood 144 mmol/L (136-145)
--- NOTE | 2018-07-14 19:25 | NUR ---
PT MORE CONFUSED TODAY THAN YESTERDAY. BP HAS BEEN ELEVATED, MEDICATED PER EMAR. PT EAGER TO GO HOME AND TRIED TO GET UP ON HER OWN. BED ALARM STAYS ON. PT NONSENCICAL TODAY AND AGITATED. MEDICATIONS TAKEN WHOLE WITH WATER. CALL LIGHT IN REACH. REPORT GIVEN TO ONCOMING NURSE.
--- NOTE | 2018-07-15 07:28 | NUR ---
remains confused, nice one moment demanding the next, call light in reach, uses it as a phone, room air, no iv, wants to go home and is sure that sig other in the tyson and will not come in
--- NOTE | 2018-07-15 13:58 | NUR ---
SO was present with the pt. The couple have been together for 40 years. Both provided space to reflect on their meeting. 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 Pt seemed to be confused as to where she was, so I change the subject with her. Presence, active soundboarding, and words of encouragement provided. I will remain available.
--- NOTE | 2018-07-15 19:25 | NUR ---
PT. COOPERATIVE WITH TAKING MEDS THIS MORNING, PLEASANT WELL. SITTING UP IN RECLINER WATCHING TV. AROUND 1500 PT BECAME DISORIENTED AND WANTING TO LEAVE, THOUGHT HER CHILDREN WOULD BE GETTING OFF SCHOOL BUS AND NOONE WOULD BE THERE TO GET THEM. EXPLAINED HER CHILDREN WERE GROWN AND SHE WAS IN HOSPITAL. SO IN WC IN ROOM TRIED TO TALK TO HER ALSO AND ORIENT HER. WAS DETERMINED TO LEAVE. TRIED TO GIVE PO ZYREXA BUT PT. REFUSED TO TAKE THE PO. CALLED DR. CHAMBERLAIN AND SHE ORDERED IM ZYPREXA ONE TIME. PT. CALMED DOWN AFTER RECEIVING SHOT AND SO LEFT. PT. TO DISCHARGE TO [facility] TOMORROW AND DR. JEREZUFF TO DO A COMPETENCY EVAL FOR [employer]. PT. VOIDED ONCE TODAY AND BLADDER SCAN SHOWED A RESIDUAL OF 500 ML. PT. REFUSED TO HAVE AN IN/OUT CATHETER.
--- NOTE | 2018-07-16 07:10 | NUR ---
refused bladder scan said she would do it when she woke up, call light in reach, no IV room air, still calling out for sig other and children, sees them in the room but they will not help her, took medication but refused each time initially just waited and asked again and she eventually agreed.
--- NOTE | 2018-07-16 18:29 | NUR ---
PT. UP IN CHAIR AT THIS TIME EATING DINNER. TOLERATING WELL. NO NOTEABLE CHANGES THIS SHIFT. DR. SUMMERS CAME TO SEE PT TODAY TO DO A PSYCH EVAL AND HAS RECCOMMENED GUARDIANSHIP FOR PATIENT. PT. HAS BEEN COOPERATIVE T/O THE DAY. PT. GIVEN A SHOWER BY MACHINE GUIDE BASE WINDER AFTER P.T/OT WALLKED HER INTO THE BATHROOM WITH THE FWW. MISHA BRADEN APPROVAL FROM [facility].
--- NOTE | 2018-07-17 03:30 | NUR ---
PATIENT ACTIVATED BED ALARM X 3 SITTING ON SIDE OF BED REPORTING WANTS TO GET UP. PATIENT REORIENTED BACK INTO BED. CALL LIGHT IN REACH.
--- NOTE | 2018-07-17 04:46 | NUR ---
SHIFT SUMMARY PATIENT HAD NO ACUTE CHANGES OBSERVED THIS SHIFT. AXO WITH CONFUSION. ACTIVATED BED ALARM X THREE REPORTING WANTING TO GET UP AT 02:30. PATIENT REORIENTED TO TIME AND BACK INTO BED. DENIES PAIN, SOB, AND N/V. NO IV ACCESS. VSS/AFEBRILE. COOPERATIVE WITH MEDICATION ADMINISTRATION AND ASSESSMENT. NO HALLUCINATIONS OBSERVED. 1-2 PERSON ASSIST TO BSC DEPENDING ON WEAKNESS. CALL LIGHT IN REACH. BED IN LOWEST POSITION. WILL CONTINUE TO MONITOR UNTIL DAY SHIFT NURSE ASSUMES CARE.
--- NOTE | 2018-07-17 05:59 | NUR ---
BLADDER SCAN >999mL. STRAIGHT CATHETER= 1,100 mL OUT. POST RESIDUAL SCAN=0.Oml PATIENT HAD UNMEASURE SCANT VOID IN PULLUP. PATIENT TOLERATED WELL. CALL LIGHT IN REACH.
--- NOTE | 2018-07-17 18:31 | NUR ---
PT. HAS BEEN QUITE CONFUSED TODAY AND HAVING HALLUCINATIONS. PT. HAS NOT VOIDED TODAY BUT LAST BLADDER SCAN AT 297. PT. HAS SET OFF BED ALARM QUITE A FEW TIMES TODAY, DOES NOT CALL FOR ASSISTANCE. PT. COOPERATIVE WITH TAKING MEDICATIONS TODAY. HAS EATEN A LITTLE BETTER TODAY ALSO.
--- NOTE | 2018-07-18 06:16 | NUR ---
SHIFT SUMMARY PT SLEPT SOUNDLY T/O NIGHT & DID NOT SET BED ALARM OFF T/O SHIFT. ALERT TO SELF, IS CONFUSED. HAS VISUAL/AUDITORY HALLUCINATIONS, REPORTS SEEING/HEARING A BABY IN THE ROOM. ANSWERS SOME YES/NO QUESTIONS APPROPRIATELY & FOLLOWS DIRECTIONS. NO S/S OF PAIN, SOB OR N/V. VSS. THIS AM BLADDER SCAN @472, STRAIGHT CATHED & GOT 500ML OUTPUT. CALL LIGHT IN REACH & BED ALARM ON.
--- NOTE | 2018-07-18 10:32 | NUR ---
PATIENT VERY CONFUSED THIS MORNING. SHE NEEDS CONSTANT POSITIVE REDIRECTION. RN LEFT ROOM AFTER REDIRECTING PATIENT TO THINK POSITIVELY, WITHIN 10 MINUTES PATIENT HAD STRIPPED HER CLOTHES AND CALLED HER DAUGHTER TO TELL HER THAT SHE WAS NAKED, ALONE AND NEEDING ASSISTANCE. ZYPREXA GIVEN WITH NO NOTICEABLE RESULTS AT THIS TIME. PATIENT IS AGITATED AND ANXIOUS. SHE DOES NOT KNOW SHE IS IN THE HOSPITAL DESPITE THE RN TELLING HER SEVERAL TIMES THAT SHE WAS.
--- NOTE | 2018-07-18 13:55 | NUR ---
Pt is in the room, she is seated beside the bed. Spoke to nurse, Jessica. She reports that she had to spend an hour today, trying to calm the patient down. Pt believed she was being walled in by cement blocks by someone. Pt was highly agitated and scared. She has also hallucinated men in her room trying to hurt her. Called and spoke to Dr. Draper to report behavior. Call placed to Dr. Card to report this. He states he will titrate up medications. Son has said that he would like patient to go to [facility] with hospice care. Will remain available.
--- NOTE | 2018-07-18 14:57 | NUR ---
SPOKE WITH RADHA FROM [facility]. A MEDICATION LIST WAS FAXED OVER. PATIENT IS NOT COMBATIVE BUT IS VERY CONFUSED AND HAVING SCARY HALLUCINATIONS. DR. ADEN WAS CALLED, MEDICATIONS HAVE BEEN SLIGHTLY CHANGED.
--- NOTE | 2018-07-18 18:49 | NUR ---
PATIENT IS HALLUCINATING THAT SHE HAS BEEN KIDNAPPED. SHE HAS BEEN TOLD SHE IS IN THE HOSPITAL IN [place] BUT QUICKLY FORGETS. SHE BELIEVES SHE HAS BEEN LOCKED IN A GARAGE AND IS NOT BEING LET OUT. RN SPENT A FEW HOURS OF TODAY IN THE PATIENT'S ROOM DE-ESCALATING HER. THIS AFTERNOON IT WAS NEARLY IMPOSSIBLE TO REORIENT PATIENT. SHE IS NOT COMBATIVE BUT SEEMS VERY SCARED OF HER HALLUCINATIONS AND DELUSIONS.
--- NOTE | 2018-07-19 06:43 | NUR ---
SHIFT SUMMARY PT SLEPT T/O NIGHT. ALERT TO SELF ONLY. FOLLOWS DIRECTIONS, IS PLEASANT, COOPERATIVE & ANSWERS YES/NO QUESTIONS APPROPRIATELY. NO HALLUCINATIONS THIS SHIFT. PT DENIES SOB, N/V OR PAIN. LEFT HIP IS BRUISED W/LILIAN & C/D/I. BLADDER SCAN THIS AM @482, STRAIGHT CATHED PT & HAD 500ML URINE OUTPUT. CALL LIGHT IS IN REACH & BED IS IN LOWEST POSITION W/BED ALARM ON.
--- NOTE | 2018-07-19 17:22 | NUR ---
SHIFT SUMMARY- PT HAS HAD NO ACUTE CHANGES TODAY. SPOKE TO INVESTMENT MANAGER AND PT IS SCHEDULED FOR EVAL TODAY FROM A FACILITY. NURSE CAME AND EVALUATED THE PT TODAY PLANNED AND ASKED QUESTIONS ABOUT THE PT CARE NEEDS. PT DENIES ANY PAIN AND HAS DECLINED ANY PAIN MEDICATION T/O THE SHIFT. PT HAS Q6 BLADDER SCAN ORDERED WITH STRAIGHT CATH FOR VOLUMES OVER 300ML. LAST BLADDER SCAN WAS 115 AT 1400. PT HAS BEEN PLEASENTLY CONFUSED WITH NO SEVERE AGITATION NOTED. PT HAS BEEN COOPERATIVE WITH CARE IF SHE IS BEGINING TO BECOME AGITATED CALM WORDS AND POSSIBLY A "CHANGE OF FACE" SEEM TO BE ALL THAT IS NEEDED TO CALM HER. PT HAS NO IV ACESS NEEDED. WILL CONTINUE TO ASK PT ABOUT HER PAIN. WILL PASS THIS ON IN REPORT TO NIGHT RN.
--- NOTE | 2018-07-20 06:34 | NUR ---
SHIFT SUMMARY PT ORIENTED TO SELF ONLY VERY CONFUSED CALLS OUT FOR ZARA VISUAL HALLUCINATIONS. 2 PERSON MAX ASSIST C GAIT BELT AND WALKER TO BSC COULD/WOULD NOT VOID. BLADDER SCAN SHOWED 477. STRAIGHT CATH OUTPUT 500. PRN ZYPREXA FOR AGITATION. REFUSED SCD'S. NO C/O PAIN. SHE DOZED OFF SOME T/O NIGHT BUT WAS AWAKE FOR MOST OF NIGHT UP UNTIL APPROX 0500. BED ALARM IN USE.
--- NOTE | 2018-07-20 11:34 | NUR ---
ASSUMED CARE OF PT- *LATE ENTRY* 0700 RECIEVED REPORT FROM NIGHT RN THAT PT WAS MORE CONFUSED LAST NIGHT, BECAME AGITATED WITH STAFF AND WAS MEDICATED PRN. THIS MORNING PT IS VERY TIRED AND REFUSED TO WAKE FOR BREAKFAST. PT WAS INCLINED TO REFUSED THE BLADDER SCAN THIS MORNING, AFTER [employer] SPOKE WITH HER SHE AGREED TO ALLOW THE BLADDER SCAN. PT REFUSED ALL MORNING MEDICATIONS, SPOKE TO DR MCGUIRE HE IS AWARE, PT ALSO REFUSED TO STRAIGHT CATH THIS MORNING, DR SANCHEZ. PT SEEMS TO BE CALMING WITH MINOR VERBAL REORIENTATION FREQUENTLY. WILL ATTEMPTE TO GIVE FLOMAX LATER IF PT APPEARS MORE WILLING.
--- NOTE | 2018-07-20 16:42 | NUR ---
1500 *late entry* PT REFUSED REPEATEDLY TO ALLOW STAFF TO BLADDER SCAN OR STRAIGHT CATH. DR SANCHEZ THIS MORNING. SPOKE TO PT AT LENGTH AND SHE AGREED TO ALLOW BLADDER SCAN AND STRAIGHT CATH, AFTER SHE TRIES TO VOID ON HER OWN, IF NEEDED.
--- NOTE | 2018-07-20 16:45 | NUR ---
WENT IN TO BLADDER SCAN PT AND STRAIGHT CATH IF NEEDED. PT HAD URINATED IN THE BED, A LARGE AMOUNT OF URINE. PT REFUSED TO ALLOW STAFF TO DO A POST VOID BLADDER SCAN. WILL INFORM DR MCGUIRE.
--- NOTE | 2018-07-20 19:25 | NUR ---
SHIFT SUMMARY- PT HAS HAD AN UP AND DOWN DAY, REFUSING MEDS AND CARE EARLY IN THE DAY, BUT IN THE AFTERNOON PT WAS MORE ALERT AND SEEMED TO BE IN A BETTER MOOD. PT RECIEVED MULTIPLE PHONE CALLS FROM FAMILY, AFTER EACH PHONE CALL THE PT FAMILY CALLED STAFF TO CHECK ON HER. PT HAS HAD FREQUENT ROUNDING T/O THE SHIFT AND HAS HER CALL LIGHT IN REACH. PT CAN ANSWER HER ROOM PHONE WITH NO DIFICULTY. PT IS CURRENTLY SITTING UP IN HER RECLINER, CHAIR ALARM IS ARMED. PT DOES CALL FOR ASSISTANCE OCCASSIONALLY. PT CAN GET IRRITABLE, SEE PREVIOUS NOTES FOR DETAILS ABOUT BLADDER SCANS. ORDER FOR BLADDER SCAN CHANGED TO PRN. PT VOIDED ONCE ON HER OWN LARGE VOLUME INCONTINENT VOID ATTENDS IN PLACE NOW. PT HAS DENIED ANY PAIN ALL SHIFT, AND REFUSED MEDS WHEN OFFERED. SHE DID TAKE HER FLOMAX WHEN IT WAS OFFERED LATE, DR MCGUIRE WAS AWARE OF PT REFUSAL TO TAKE MORNING MEDS AND WANTED HER TO HAVE THIS IF POSSIBLE TODAY.
--- NOTE | 2018-07-21 06:41 | NUR ---
SHIFT SUMMARY PT ORIENTED TO SELF ONLY. VERY ANXIOUS AND IMPULSIVE WANTING TO LEAVE AND NOT BE IN THIS "SNF". GETTING OOB IMPULSIVELY AND HIGH FALL RISK SO GOT ORDER FOR REBECCA VEST RESTRAINTS. WAS INCONT OF URINE. PRN ZYPREXA GIVEN FOR INCREASED ANXIETY/AGITATION. SHE WASN'T ABLE TO SLEEP REALLY THROUGH NIGHT, MOSTLY LIGHTLY DOZED BUT AWAKE WITH ANY NOISE. STILL CALLING OUT "ZARA". BED ALARM IN USE
--- NOTE | 2018-07-21 18:48 | NUR ---
PT DID NOT VOID ALL SHIFT, BLADDER SCAN SHOWED OVER 700ML PT TRANSFERED TO THE COMODE AND ATTEMPTED TO URINATE ONLY PASSED 50ML. STRAIGHT CATH DONE APPROX 550ML OUT, VERY SLOW TO DRAIN.
--- NOTE | 2018-07-21 20:05 | NUR ---
SHIFT SUMMARY- PT HAS BEEN PLEASENTLY CONFUSED FOR THE SECOND HALF OF THE SHIFT, FAMILY CAME TO VISIT AND THE PT WAS PLEASENT. PAIN MANAGEMENT WAS GIVEN ONCE TODAY. PT WILLING TO ALLOW STAFF TO STRAIGHT CATH HER AT THE END OF THE DAY (SEE PREV NOTE FOR DETAILS). PT IS STILL IN THE REBECCA VEST, SHE HAS BEEN CALM ALL DAY SOME MINOR EPISODES OF AGITATION MANAGED WELL WITH REDIRECTION. MOOD SWINGS CAN OCCUR QUICKLY AND WITHOUT WARNING SO REBECCA WAS LEFT IN PLACE PER THE ORDER. PT IS SLEEPING WITH HER CALL LIGHT IN REACH AT THE CHANGE OF SHIFT.
--- NOTE | 2018-07-22 06:11 | NUR ---
SHIFT SUMMARY RESTRAINTS WERE DC'D PT WAS COOPERATIVE AND DID NOT TRY TO GET OUT OF BED. PT IS CONFUSED BUT REDIRECTING IS HELPFUL. BLADDER SCAN AT APPROX 0600 SHOWED 280 ML OF URINE IN THE BLADDER. PT HAS NOT EXPERIENCED ELEVATED BP'S, ALL VITALS ARE WNL FOR PT. IT MAY BE IMPORTANT TO FOCUS ON BOWEL CARE NO RECENT BM HAS OCCURED. PT DID RECEIVE ADEQUATE SLEEP THROUGHOUT SHIFT, ONLY WAKING FOR NURSING CARE ACTIVITIES. WILL CONTINUE TO MONITOR.
[2018-07-22 08:08] LABS: Hematocrit 31.1 % (33.0-51.0); Hemoglobin 9.8 g/dL (11.5-16.0); Mean Corpuscular HGB 29.4 pg (26.0-34.0); Mean Corpuscular HGB Conc 31.5 g/dL (31.5-36.5); Mean Corpuscular Volume 93 fL (80-100); Mean Platelet Volume 10.2 fL (9.1-12.4); Platelet Count 330 K/mm3 (150-400); RDW Coefficient Variation 14.9 % (11.7-14.2); RDW Standard Deviation 50.2 fL (35.1-46.3); Red Blood Cell Count 3.33 M/mm3 (3.80-5.20); White Blood Cell Count 6.87 K/mm3 (4.00-11.30)
[2018-07-22 08:19] LABS: Anion Gap 6 mmol/L (6-16); Blood Urea Nitrogen 12 mg/dL (8-24); Bun/Creatinine Ratio 13.7 (12.0-20.0); CO2, Blood 29 mmol/L (21-32); Calcium, Blood 8.7 mg/dL (8.5-10.1); Chloride, Blood 106 mmol/L (98-108); Creatinine, Blood 0.88 mg/dL (0.40-1.00); Glomerular Filtration Rate >60 (60-); Glucose, Blood 101 mg/dL (70-99); Potassium, Blood 3.8 mmol/L (3.5-5.5); Sodium, Blood 141 mmol/L (136-145)
--- NOTE | 2018-07-22 17:48 | NUR ---
PT provided permission for [employer]) to provide care on 07/23/2018 and access chart information.
--- NOTE | 2018-07-22 18:16 | NUR ---
SHIFT SUMMARY THE PATIENT PRESENT THIS MORNING WITH CLEAR LUNGS, A&O TO SELF AND VITALS WNL. THE PATIENT REQUESTED TO SLEEP MORE THIS MORNING AND WAS ALLOWED LONGER. THE PATIENT'S FAMILY VISITED THIS AFTERNOON AND THE PATIENT BECAME UPSET AT NOT GOING HOME, AFTER THE FAMILY LEFT THE PATIENT AGREED TO GO BACK TO BED AND WAIT FOR DINNER. THE PATIENT HAS HAD SEVERAL BLADDER SCANS TODAY, THE LARGEST BEING 355 ML, AT 1710. DR. MCGUIRE STATED TO STRIAGHT CATH THE PATIENT AT 500 ML. THE PATIENT IS SLEEPING AT THIS TIME, WILL CONTINUE TO MONITOR.
--- NOTE | 2018-07-22 22:42 | NUR ---
PT STATUS BLADDER SCAN AT 2300 HRS INDICATES 383 ML OF URINE IN THE BLADDER. PER HANDOFF REPORT, WE ARE TO STRAIGHT CATH THE PT ONLY WHEN THERE IS 500 ML. WILL CONTINUE TO MONITOR. NO ADVERSE S/SX NOTICED OR REPORTED.
--- NOTE | 2018-07-23 01:53 | NUR ---
PT STATUS BOWEL CARE SUCCESSFUL. PT HAD A MED, BROWN, FORMED BM AT 0145 HRS. NO URINE OBSERVED IN BEDSIDE COMMODE.
--- NOTE | 2018-07-23 04:40 | NUR ---
SHIFT SUMMARY BLADDER SCANS ARE BEING PERFORMED Q 6 HRS. PT IS TO BE STRAIGHT CATH IF >450 ML URINE IS OBSERVED. PT'S APPETITE HAS BEEN POOR. PT HAD A MEDIUM BM DURING SHIFT. PT HAS BEEN RETAINING URINE. NEXT BLADDER SCAN IS DUE AT 0530 HRS. PT HAS BEEN COOPERATIVE AND FOLLOWING INSTRUCTIONS. PT IS CONFUSED AND HALLUCINATES, A&O TO SELF ONLY. IN FOLLOWING CHARTING HISTORY I NOTICED THAT THE PT'S SON REQUESTED PLACEMENT IN A [facility] FOR PT AND HOSPICE CARE. PT IS A 1 PERSON ASSIST TO BEDSIDE COMMODE DUE TO UNSTEADINESS AND CONFUSION. WILL CONTINUE TO MONITOR.
[2018-07-23 06:20] LABS: Source, Urine Catheter
[2018-07-23 06:28] LABS: Blood, Urine 1+ (Neg); Glucose Qualitative, Urine Neg (Neg); Ketones, Urine Neg (Neg); Leukocyte Esterase, Urine 3+ (Neg); Nitrite, Urine Pos (Neg); Protein, Urine 2+ (Neg); Specific Gravity, Urine 1.015 (1.003-1.022); Urobilinogen, Urine 1+ (Normal)
[2018-07-23 06:38] LABS: Appearance, Urine Cloudy (Clear); Bilirubin, Urine 1+ (Neg); Color, Urine Yellow (P-Yellow)
[2018-07-23 06:41] LABS: White Blood Cells, Urine 25-50 /hpf (0-5)
[2018-07-23 06:42] LABS: Amorphous Mod (0-Heavy); Bacteria Many /hpf; Squamous Epithelial Cells Rare /hpf (Few)
--- NOTE | 2018-07-23 06:42 | NUR ---
PT STATUS BLADDER SCAN REVEALED 497 ML OF URINE. PT INITIALLY REFUSED STRAIGHT CATH PROCEDURE. WAS ABLE TO EXPLAIN TO HER THE DANGERS OF WAITING UNTIL TOMORROW TO DRAIN THE BLADDER ( SHE HAD INITIALLY REQUESTED). STRAIGHT CATH PERFORMED REMOVING 450 ML. DRAINED SLOWLY. SENT URINE SPECIMEN TO LAB PER PROTOCOL. CULTURE IF INDICATED. PT TOLERATED PROCEDURE WELL.
--- NOTE | 2018-07-23 17:50 | NUR ---
SHIFT SUMMARY THE PATIENT PRESENTED THIS AM WITH VITALS WNL, A&O TO SELF AND LUNGS THAT WERE CLEAR. THE PATIENT WAS INTERVIEWED FOR A SNF AND MAY TRANSFER TOMORROW. THE PATIENT'S FAMILY WAS IN TO VISIT TODAY. THE PATIENT WAS UP TO HER CHAIR FOR FOUR HOURS THIS SHIFT, BUT REFUSED TO GET INTO HER CHAIR FOR DINNER. THE PATIENT IS RESTING AT THIS TIME, WILL CONTINUE TO MONITOR.
--- NOTE | 2018-07-24 04:33 | NUR ---
SHIFT SUMMARY PT COOPERATIVE MOSTLY, WHEN EXPRESSING SOME AGITATION SHE CAN BE REDIRECTED AND CALMED QUICKLY. PT'S APPETITE SLIGHTLY IMPROVED (VIA HANDOFF REPORT). SHE IS FREQUENTLY SPILLING FLUIDS OFFERED TO HER. SHE IS STILL CONFUSED AND HALLUCINATING. SHE HAS NO IV, NO TELEMETRY MX, AND IS ON RA. BLADDER SCANS ARE PERFORMED Q 6 HRS AND IF URINE > 450 ML, ORDERS STATE TO STRAIGHT CATH. TODAY AT 2100 HRS AND 0330 HRS, 347 ML AND 310 ML WAS MEASURED RESPECTIVELY. THERE IS SOME POSSIBILITY OF A UTI AND PT HAS BEEN PRESCRIBED ANTIBIOTICS TO COVER THAT. PLAN IS FOR DC TO SNF ON HOSPICE.
--- NOTE | 2018-07-24 16:01 | NUR ---
PATIENT'S SON AND SPOUSE IN TO VISIT EARLIER IN SHIFT, STATED CONCERN THAT PATIENT WAS SO SLEEPY AND INQUIRED ABOUT HER MEDICATIONS. NURSE REVIEWED MEDICATIONS WITH FAMILY. SEE MAR. NONE OF THE MEDICATIONS GIVEN THIS MORNING WOULD HAVE SEDATED THE PATIENT. VSS. OCCUPATIONAL THERAPY WORKED WITH PATIENT, SEE NOTE. AT THAT TIME, PATIENT WOKE UP AND WENT FOR A WALK. PT STATED THAT SHE WAS VERY DROWSY BUT FEELS BETTER NOW. DR WING NOTIFIED THAT PATIENT WAS SLEEPY BUT THAT HAS RESOLVED.
--- NOTE | 2018-07-24 16:52 | NUR ---
SHIFT SUMMARY PT ORIENTED TO SELF, FAMILY MEMBERS, FOLLOWING DIRECTIONS AND THAT SHE IS IN A HOSPITAL. SEE PRIOR NOTE FROM TODAY.NO HALLUCINATIONS THIS SHIFT. PT AMBULATED AND IS NOW UP TO A CHAIR WITH OCCUPATIONAL THERAPY. 2 ASSIST WITH FWW AND GB. CHAIR ALARM ON. NO ACUTE CHANGES THIS SHIFT. NO IV IN PLACE. VSS. SEE NETWORK SECURITY OFFICER NOTE. BED IN LOW POSITION, CALL LIGHT WITHIN REACH. PT BLADDER SCANNED AT 0849 REVEALED 509ML IN BLADDER. PT THEN VOIDED LARGE AMOUNT AND THEREFORE WAS NOT STRAIGHT CATHED. AT 1016 PT WAS BLADDER SCANNED PT HAD 391ML IN BLADDER. NURSE WILL REASSESS WHEN PT IS BACK TO BED AFTER DINNER.
--- NOTE | 2018-07-24 18:46 | NUR ---
BLADDER SCAN AT 1822 REVEALED 709ML OF URINE IN BLADDER. NURSE ATTEMPTED STRAIGHT CATH, HOWEVER WAS NOT SUCCESSFUL.
--- NOTE | 2018-07-25 05:29 | NUR ---
SHIFT SUMMARY RE-ORIENTED MULTIPLE TIMES AT BEGINNING OF SHIFT. WANTED TO SPEAK TO AND SON; MADE AWARE THAT FAMILY WAS IN TO VISIT HER DURING THE DAY. FOLLOWING DIRECTIONS AND COOPERATIVE WITH CARE. APPEARED TO REST MUCH OF SHIFT. STATED HUNGRY AND THIRSTY. OFFERED FOOD AND DRINK, STATED SHE WILL EAT WHEN SHE GOES HOME; HOWEVER, GREATFUL FOR THE FLUIDS. BLADDER SCAN X3 THIS SHIFT; STRAIGHT CATH X1. NO ACUTE CHANGES NOTED OVERNIGHT. BED IN LOWEST POSITION. ALARM ON. CALL LIGHT WITHIN REACH. WCTM. REPORT TO ONCOMING RN.
[2018-07-25] MEDS ORDERED: Acetaminophen325 M1 PO (09:21)
[2018-07-25] MEDS ORDERED: DOCU100 PO (09:22)
[2018-07-25] MEDS ORDERED: CIPR250 PO (09:22)
[2018-07-25] MEDS ORDERED: ASPI81CH PO (09:22)
[2018-07-25] MEDS ORDERED: LEVSOD50 PO (09:23)
[2018-07-25] MEDS ORDERED: FOLI1 PO (09:23)
[2018-07-25] MEDS ORDERED: LOSA25 PO (09:24)
[2018-07-25] MEDS ORDERED: Milk Of Ma400 MG/5 M PO (09:24)
[2018-07-25] MEDS ORDERED: Zyprexa Zydis15 MG MM (09:25)
[2018-07-25] MEDS ORDERED: TAMS.4ER PO (09:26)
[2018-07-25] MEDS ORDERED: OLAN5A MM (09:26)
--- NOTE | 2018-07-25 10:24 | NUR ---
PATIENT TO DISCHARGE TO [facility] IN [place]. CALLED REPORT TO KATHERINE PRIOR TO PICKUP. ROOM PACKED BY STAFF. NO IV TO REMOVE. PATIENT WAS TAKEN DOWN BY PRINTING PLATE MAKER IN . NO MEDS OR INSTUCTIONS WERE DISCUSSED DUE TO THE PATIENTS HIGH LEVEL OF DEMENTIA.
== END 2018-07-25 10:39 | disposition hospice, home (50) | DRG 480 ==
LOC: ER 20:45 → MEDS 20:46 → ER 20:46 → MEDS 20:46 → ER 23:26 → MEDS 23:26
PROVIDERS: Emergency Medicine; Internal Medicine; Orthopaedic Surgery; Physician Assistant Surgical; ADMIT Hospitalist
PROC: 0QS936Z Reposition Left Femoral Shaft with Intramedullary Internal Fixation Device, Percutaneous Approach (ICD-10-PCS; principal; 2018-07-09 14:00)
DX: S72.8X2A Other fracture of left femur, initial encounter for closed fracture (principal); G92 Toxic encephalopathy; N17.9 Acute kidney failure, unspecified; C34.90 Malignant neoplasm of unspecified part of unspecified bronchus or lung; C78.7 Secondary malignant neoplasm of liver and intrahepatic bile duct; N39.0 Urinary tract infection, site not specified; W19.XXXA Unspecified fall, initial encounter; D64.9 Anemia, unspecified; K14.9 Disease of tongue, unspecified; F10.11 Alcohol abuse, in remission; I10 Essential (primary) hypertension; E78.5 Hyperlipidemia, unspecified; Z87.891 Personal history of nicotine dependence; F03.90 Unspecified dementia, unspecified severity, without behavioral disturbance, psychotic disturbance, mood disturbance, and anxiety
CPT/HCPCS: 20225; 36415; 36416; 51701; 51702; 70450; 70551; 71045; 71046; 71260; 73502; 73552; 73562-LT; 73700; 74177; 77012; 80048; 80053; 81001; 82232; 82607; 82728; 82746; 82784; 83540; 83550; 83615; 83735; 84165; 84425; 84443; 84484; 85014; 85018; 85025; 85027; 85060; 85610; 85651; 86334; 86335; 86592; 87077; 87086; 87186; 88305; 88341; 88342; 93005; 93010; 96374; 97110; 97116; 97162; 97166; 97530; 97535; 99285-25; C1713; C1769; G0480; G8978; G8979; G8987; G8988; J0360; J0690; J0696; J1100; J1650; J2060; J2370; J2405; J3010; J7030; J7060; J7120; P9612; Q9967